=== PATIENT | female | born 1980 | race Hispanic/Latino ===

== ENCOUNTER 2022-03-31 01:17 | Emergency (ER) | payer MEDICAID, OTHER ==
[~2022-03-31] VITALS: Ht 160 cm; Wt 77.1 kg
[2022-03-31 01:54] LABS: BASOPHILS % (AUTO) 0.6 % (0.0-5.0); EOSINOPHILS % (AUTO) 3.3 % (0.0-8.0); HEMATOCRIT 43.9 % (36-48); MEAN CORPUSCULAR HEMOGLOBIN 30.6 pg (27.0-33.0); MEAN CORPUSCULAR HGB CONC 34.4 g/dL (32.0-36.0); MONOCYTES % (AUTO) 8.2 % (3.0-13.0); NEUTROPHILS % (AUTO) 67.6 % (40.0-77.0); PLATELET COUNT (AUTO) 496 K/uL (130-400); RED BLOOD CELL COUNT(AUTO) 4.93 MIL/uL (4.00-5.50); RED CELL DISTRIBUTION WIDTH 12.9 % (11.0-15.5); WHITE BLOOD COUNT (AUTO) 15.6 K/uL (4.8-10.8)
[2022-03-31] MEDS ORDERED: HALOPERIDOL INJ 5 MG/ML VIAL IM SCH (02:00)
[2022-03-31] MEDS ORDERED: ONDANSETRON 4MG INJ IVP ONE (02:00)
[2022-03-31 02:03] LABS: CREATININE 0.7 mg/dL (0.5-1.5); POTASSIUM 3.9 mmol/L (3.5-5.1)
[2022-03-31 02:05] LABS: APPEARANCE,URINE CLEAR (CLEAR); BILIRUBIN,URINE NEGATIVE (NEGATIVE); COLOR,URINE YELLOW (YELLOW); GLUCOSE, URINE (UA) NEGATIVE (NEGATIVE); KETONES,URINE 5 mg/dL (NEGATIVE); LEUKOCYTE ESTERASE ,URINE NEGATIVE Leu/uL (NEGATIVE); NITRATE,URINE NEGATIVE (NEGATIVE); OCCULT BLOOD,URINE NEGATIVE (NEGATIVE); PROTEIN,URINE 20 mg/dL (NEGATIVE); UROBILINOGEN,URINE 0.2 mg/dL (0.2-1.0)
[2022-03-31 02:07] LABS: ALBUMIN 4.9 g/dL (3.5-5.0); MAGNESIUM 2.1 mg/dL (1.80-2.40); TOTAL PROTEIN, SERUM 8.6 g/dL (6.0-8.3)
[2022-03-31 02:10] LABS: MUCUS,URINE MOD LPF (None Seen); RBC,URINE 0-1 /HPF (0-1); SQUAMOUS EPITHELIAL CELL,UR FEW /HPF (0-2)
[2022-03-31 02:46] LABS: AMPHET/METH SCREEN,URINE NEGATIVE (NEGATIVE); BARBITURATE SCREEN, URINE NEGATIVE (NEGATIVE); BENZODIAZEPINES SCREEN,URINE POSITIVE (NEGATIVE); CANNABINOID SCREEN,URINE POSITIVE (NEGATIVE); COCAINE SCREEN,URINE POSITIVE (NEGATIVE); OPIATE SCREEN,URINE NEGATIVE (NEGATIVE); PHENCYCLIDINE SCREEN,URINE NEGATIVE (NEGATIVE)
[2022-03-31 02:48] LABS: ALCOHOL, BLOOD 6 mg/dL (0-10)
[2022-03-31 02:50] LABS: ACETAMINOPHEN < 3 mcg/mL (10-30); SALICYLATE < 2.8 mg/dL (2.8-20.0)
[2022-03-31 03:47] VITALS: BP 101/66
== END 2022-03-31 04:14 | disposition home or self-care (01) ==
LOC: EDH 01:17
DX: F19.10 Other psychoactive substance abuse, uncomplicated (principal); F41.9 Anxiety disorder, unspecified; F32.A Depression, unspecified; Z98.890 Other specified postprocedural states
CPT/HCPCS: 99284; 96374; 83735; 80053; 80305; 83690; 85025; 81025; 36415; 96372; 81001; G0481; J1630; J2405

== ENCOUNTER 2024-12-19 18:34 | Emergency (ER) | payer OTHER ==
[~2024-12-19] VITALS: Ht 152.4 cm; Wt 72.6 kg
--- NOTE | 2024-12-19 20:05 | ERN ---
General Chief Complaint: Anxiety/Panic Attack Stated Complaint: ANXIETY Time Seen by MD: 18:36 Time Seen by Midlevel: 18:36 Source: patient History of Present Illness Initial Comments The patient is a 44-year-old female with a past medical history of anxiety on alprazolam being brought in by EMS for evaluation of anxiety following a verbal altercation. According to the patient she was involved in a verbal altercation that led to her having a panic attack. She does report similar episodes in the past and normally takes alprazolam. Allergies: Coded Allergies: No Known Drug Allergies (Unverified Allergy, Unknown, 03/31/22) Past Medical History Past Medical History: Anxiety, Depression, Other Medical History Other: PSEUDOSEIZURES Past Surgical History: None Surgical History Other: TUBAL LIGATION Family History Family History: Negative Social History Social History: ETOH, Lives with family ROS Dictation CONSTITUTIONAL: Negative except for HPI HEAD/FACE: Negative except for HPI EENT: Negative except for HPI RESPIRATORY: Negative except for HPI GASTROINTESTINAL/ABDOMINAL: Negative except for HPI GENITOURINARY: Negative except for HPI MUSCULOSKELETAL: Negative except for HPI INTEGUMENTARY: Negative except for HPI NEUROLOGICAL/PSYCH: Negative except for HPI HEMATOLOGIC/LYMPHATIC: Negative except for HPI All Systems Negative, Except as noted above. 13 point review of systems assessed and all negative except for above. Physical Exam Physical Exam Dictation Vital Signs reviewed General Appearance: Alert, oriented x 3, tearful during my examination, well developed, nourished. Head and Face: non-traumatic. Eyes: PERRL, pink conjunctivas, eyelid no trauma, anterior chamber with arcus senilis. Ears: Pinnas intact and no signs of trauma or erythema ear canals clear and no discharge TM no erythema Nose: No discharge, no bleeding. Oropharynx: Mouth normal, tongue pink, pharynx clear,no erythema, tonsils no exudates, no abscesses noted, mucous membrane moist Neck: Supple, non-tender, no thyromegaly, no masses, no JVD, no bruits Breast:Deferred Chest:No tenderness, no crepitus, no paradoxical movement, no retractions Lungs:Clear, well-ventilated, symmetric, no rales, no wheezing, no rhonchi, no stridor, good breath sounds bilaterally Heart: Regular rate, regular rhythm, no murmur, no gallops Vascular: no peripheral edema, Abdomen: Soft, positive bowel sounds, nondistended, no guarding, nontender, no rebound, no masses no hepatomegaly, no splenomegaly, no Parnell's sign, no hernias. Rectal: Deferred Genital: Deferred Neurological: Normal speech, motor function intact, sensory function intact Musculoskeletal: Neck nontender, full range of motion, back nontender, full range of motion, Extremities: nontender, full range of motion Skin: Color pink, dry, no turgor, no rash, no lacerations, no abrasions, no contusions. Lymphatic: Deferred MDM MDM: The patient is a 44-year-old female with a past medical history of anxiety on alprazolam being brought in by EMS for evaluation of anxiety following a verbal altercation. According to the patient she was involved in a verbal altercation that led to her having a panic attack. She does report similar episodes in the past and normally takes alprazolam. On physical examination the patient is tearful. Vital signs are stable. Patient is afebrile and nontoxic appearing. Patient is requesting anxiety medication. Patient was given1 mg of Ativan p.o. and was observed in the emergency department. No seizure-like activity seen in the ER. Vitals remained stable. Patient will be discharged home with strict return precautions Differential diagnosis: Anxiety, panic attack, There are no social concerns with this patient. Prescription drug management Prescriptions will include: None Medical management and examination interpretation discussions were had by me with other qualified healthcare professionals as indicated for the patient's care. ED Course Orders Procedure Category Date Status Time Lorazepam 1 Mg PHA 12/19/24 Complete (Ativan) 19:30 Current Medications Medications (Trade) Dose Ordered Sig/Ted Route PRN Reason Start Time Stop Time Status Last Admin Dose Admin Lorazepam (AtiVAN) 1 mg ONCE ONCE PO 12/19/24 19:30 12/19/24 19:31 DC 12/19/24 19:26 Vital Signs Date Time Temp Pulse Resp B/P (MAP) Pulse Ox O2 Delivery O2 Flow Rate FiO2 12/19/24 19:16 97 18 121/92 99 Room Air* 0 21 12/19/24 18:37 98.2 118 16 122/68 100 Room Air 0 DX & DISP Disposition: Discharge Departure Impression: Primary Impression: Anxiety attack Condition: Stable Referrals: LOUANN SOUSA MD (PCP) Time of Disposition: 20:04 I have reviewed the case, and I agree with, Diagnosis and Plan I performed the substantive portion of the visit. I have reviewed and personally made and approve the management plan that is documented in the note by myself or the COLLIN. I acknowledge for responsibility for the patient's management plan. HAY DALAL Dec 19, 2024 20:05
[2024-12-19 20:13] VITALS: BP 124/56; PULSE 82; RESP 18; TEMP 98.3; O2SAT 98
== END 2024-12-19 20:26 | disposition home or self-care (01) ==
LOC: EDH 18:34
DX: F41.0 Panic disorder [episodic paroxysmal anxiety] (principal); F32.A Depression, unspecified; Z98.51 Tubal ligation status
CPT/HCPCS: 99283